=== PATIENT | female | born 1950 | race African-American/Black ===

== ENCOUNTER → 2016-11-22 | Outpatient (CLI) | payer OTHER | LOC: FIMAGING 09:53 | PROVIDERS: ATTEND Internal Medicine | DX: N64.4 Mastodynia (principal) ==

== ENCOUNTER → 2016-12-04 | Outpatient (CLI) | payer OTHER | LOC: FIMAGING 16:23 | DX: R22.1 Localized swelling, mass and lump, neck (principal); N28.1 Cyst of kidney, acquired; Z85.020 Personal history of malignant carcinoid tumor of stomach ==

== ENCOUNTER → 2016-12-08 | Outpatient (CLI) | payer OTHER ==
[~2016-12-08] MED LIST: GADOBUTROL 10 ML VIAL IVP ONE
== END ==
LOC: FIMAGING 08:34
PROVIDERS: ATTEND Nurse Practitioner
DX: M84.48XA Pathological fracture, other site, initial encounter for fracture (principal); M48.06 Spinal stenosis, lumbar region; C79.51 Secondary malignant neoplasm of bone; Z85.030 Personal history of malignant carcinoid tumor of large intestine
CPT/HCPCS: 72157; 72158; A9585

== ENCOUNTER → 2017-02-10 | Outpatient (CLI) | payer OTHER | LOC: BHLMT 11:00 | PROVIDERS: ATTEND Internal Medicine Cardiovascular Disease | DX: R93.1 Abnormal findings on diagnostic imaging of heart and coronary circulation (principal); E34.0 Carcinoid syndrome; I10 Essential (primary) hypertension; E78.5 Hyperlipidemia, unspecified | CPT/HCPCS: 93005-PO ==

== ENCOUNTER → 2017-02-12 | Outpatient (CLI) | payer OTHER | LOC: FIMAGING 10:40 | PROVIDERS: ATTEND Internal Medicine | DX: Z12.31 Encounter for screening mammogram for malignant neoplasm of breast (principal); Z85.030 Personal history of malignant carcinoid tumor of large intestine | CPT/HCPCS: G0202 ==

== ENCOUNTER → 2017-03-06 | Outpatient (CLI) | payer OTHER | LOC: FIMAGING 11:56 | PROVIDERS: ATTEND Internal Medicine Hematology & Oncology | DX: Z03.89 Encounter for observation for other suspected diseases and conditions ruled out (principal); C7A.012 Malignant carcinoid tumor of the ileum ==

== ENCOUNTER → 2017-09-18 | Outpatient (CLI) | payer OTHER | LOC: FIMAGING 10:43 | PROVIDERS: ATTEND Internal Medicine Hematology & Oncology | DX: R22.31 Localized swelling, mass and lump, right upper limb (principal) ==

== ENCOUNTER → 2017-09-23 | Outpatient (CLI) | payer OTHER | LOC: FIMAGING 14:06 | PROVIDERS: ATTEND Internal Medicine Hematology & Oncology | DX: M25.511 Pain in right shoulder (principal); M75.101 Unspecified rotator cuff tear or rupture of right shoulder, not specified as traumatic; M75.51 Bursitis of right shoulder; M75.21 Bicipital tendinitis, right shoulder; M75.81 Other shoulder lesions, right shoulder; M19.011 Primary osteoarthritis, right shoulder; R93.8 Abnormal findings on diagnostic imaging of other specified body structures; C7A.012 Malignant carcinoid tumor of the ileum; R10.9 Unspecified abdominal pain | CPT/HCPCS: 73223; A9585 ==

== ENCOUNTER → 2017-10-23 | Outpatient (CLI) | payer OTHER ==
[~2017-10-23] MED LIST changes: -GADOBUTROL 10 ML VIAL IVP ONE; +HYDROCODONE/APAP 5/325 TAB ONE
== END ==
LOC: FIMAGING 10:52
PROVIDERS: ATTEND Otolaryngology
DX: R13.10 Dysphagia, unspecified (principal); R49.0 Dysphonia; Z85.89 Personal history of malignant neoplasm of other organs and systems
CPT/HCPCS: 92611-GN

== ENCOUNTER → 2018-01-06 | Outpatient (CLI) | payer OTHER | LOC: BMCIMAGING 10:48 | PROVIDERS: ATTEND Internal Medicine | DX: M85.842 Other specified disorders of bone density and structure, left hand (principal); M19.042 Primary osteoarthritis, left hand ==

== ENCOUNTER → 2018-05-27 | Outpatient (CLI) | payer OTHER | LOC: FIMAGING 09:48 | PROVIDERS: ATTEND Internal Medicine | DX: Z12.31 Encounter for screening mammogram for malignant neoplasm of breast (principal) ==

== ENCOUNTER → 2018-08-20 | Outpatient (CLI) | payer OTHER | LOC: FIMAGING 09:54 | PROVIDERS: ATTEND Nurse Practitioner | DX: M79.601 Pain in right arm (principal); S42.254D Nondisplaced fracture of greater tuberosity of right humerus, subsequent encounter for fracture with routine healing; Z85.830 Personal history of malignant neoplasm of bone | CPT/HCPCS: 82397-90; 84260-90 ==

== ENCOUNTER → 2018-09-28 | Outpatient (CLI) | payer OTHER ==
[~2018-09-28] MED LIST changes: +GADOBUTROL 10 ML VIAL IVP ONE; -HYDROCODONE/APAP 5/325 TAB ONE
== END ==
LOC: FIMAGING 11:10
PROVIDERS: ATTEND Internal Medicine Hematology & Oncology
DX: C40.01 Malignant neoplasm of scapula and long bones of right upper limb (principal); M75.121 Complete rotator cuff tear or rupture of right shoulder, not specified as traumatic; M75.21 Bicipital tendinitis, right shoulder; M75.51 Bursitis of right shoulder; M19.011 Primary osteoarthritis, right shoulder
CPT/HCPCS: 73220; 73223; A9585; 82565-PO

== ENCOUNTER → 2018-12-15 | Outpatient (CLI) | payer OTHER | LOC: FIMAGING 06:26 | PROVIDERS: ATTEND Internal Medicine Hematology & Oncology | DX: C41.9 Malignant neoplasm of bone and articular cartilage, unspecified (principal) | CPT/HCPCS: 72197; A9585; 82565-PO ==